=== PATIENT | male | born 1935 ===

== ENCOUNTER 2017-01-15 11:00 | Outpatient (RCR) | payer MEDICARE, BC | END 2017-01-21 | disposition home or self-care (01) | LOC: PTY 11:00 | DX: M54.42 Lumbago with sciatica, left side (principal); M79.604 Pain in right leg; M19.90 Unspecified osteoarthritis, unspecified site | CPT/HCPCS: 97110; 97140; 97161; G8978; G8979 ==

== ENCOUNTER 2017-01-23 10:00 | Outpatient (RCR) | payer MEDICARE, BC | END 2017-02-20 | disposition home or self-care (01) | LOC: PTY 10:00 | DX: M54.42 Lumbago with sciatica, left side (principal) | CPT/HCPCS: 97110; 97140; G0283 ==